=== PATIENT | male | born 1955 | race Caucasian/White ===

== ENCOUNTER 2017-07-15 08:47 | Day surgery (SDC) | payer BC ==
[~2017-07-15] VITALS: Ht 170.2 cm; Wt 103.5 kg
[~2017-07-15 08:47] MED LIST: AMLO5 PO; ASPI81EC PO; ATOR10 PO; FENO145 PO; NAPR500 PO; OLME20-12. PO
== END 2017-07-15 10:57 | disposition home or self-care (01) ==
LOC: ORSCSDS 08:47
PROVIDERS: Internal Medicine Gastroenterology
PROC: 0DBP8ZX Excision of Rectum, Via Natural or Artificial Opening Endoscopic, Diagnostic (ICD-10-PCS; principal; 2017-07-15 10:00)
PROC: 0DBK8ZX Excision of Ascending Colon, Via Natural or Artificial Opening Endoscopic, Diagnostic (ICD-10-PCS; principal; 2017-07-15 10:00)
PROC: 0DBH8ZX Excision of Cecum, Via Natural or Artificial Opening Endoscopic, Diagnostic (ICD-10-PCS; principal; 2017-07-15 10:00)
DX: Z12.11 Encounter for screening for malignant neoplasm of colon (principal); D12.0 Benign neoplasm of cecum; D12.2 Benign neoplasm of ascending colon; K62.1 Rectal polyp; Z86.010 Personal history of colon polyps; Z80.0 Family history of malignant neoplasm of digestive organs; I10 Essential (primary) hypertension; E78.5 Hyperlipidemia, unspecified; Z79.82 Long term (current) use of aspirin; Z79.899 Other long term (current) drug therapy; Z87.891 Personal history of nicotine dependence
CPT/HCPCS: 88305; J7120

== ENCOUNTER 2019-02-16 01:02 | Observation (INO) | payer BC ==
[~2019-02-16] VITALS: Ht 170.2 cm; Wt 104.3 kg
[2019-02-16 01:50] LABS: BASOPHILS ABSOLUTE AUTO 0.03 K/mm3 (0.00-0.23); BASOPHILS PERCENT AUTO 1 % (0-2); EOSINOPHILS ABSOLUTE AUTO 0.13 K/mm3 (0.00-0.68); EOSINOPHILS PERCENT AUTO 2 % (0-6); Hematocrit 40.3 % (37.0-53.0); Hemoglobin 14.1 g/dL (13.5-17.5); IMMATURE GRAN ABSOLUTE AUTO 0.04 K/mm3 (0.00-0.10); IMMATURE GRAN PERCENT AUTO 1 % (0-1); LYMPHOCYTES ABSOLUTE AUTO 1.28 K/mm3 (0.84-5.20); LYMPHOCYTES PERCENT AUTO 20 % (21-46); MONOCYTES ABSOLUTE AUTO 0.72 K/mm3 (0.16-1.47); MONOCYTES PERCENT AUTO 11 % (4-13); Mean Corpuscular HGB 33.3 pg (26.0-34.0); Mean Corpuscular Volume 95 fL (80-100); Mean Platelet Volume 9.3 fL (9.1-12.4); NEUTROPHILS ABSOLUTE AUTO 4.23 K/mm3 (1.96-9.15); NEUTROPHILS PERCENT AUTO 66 % (41-73); Platelet Count 227 K/mm3 (150-400); RDW Coefficient Variation 13.1 % (11.7-14.2); RDW Standard Deviation 45.7 fL (35.1-46.3); Red Blood Cell Count 4.23 M/mm3 (4.30-5.90); White Blood Cell Count 6.43 K/mm3 (4.00-11.30)
[2019-02-16] MEDS ORDERED: OLMESARTAN-HCT1 EACH PO (02:01)
[2019-02-16] MEDS ORDERED: Aspir 8181 MG PO (02:02)
[2019-02-16 02:04] LABS: Alanine Aminotransfer (ALT/SGP 673 U/L (12-78); Albumin, Blood 3.9 g/dL (3.4-5.0); Alk Phos 164 U/L (50-136); Anion Gap 11 mmol/L (6-16); Aspartate Aminotrans (AST/SGOT 974 U/L (12-37); Blood Urea Nitrogen 15 mg/dL (8-24); Bun/Creatinine Ratio 16.8 (12.0-20.0); CO2, Blood 23 mmol/L (21-32); Calcium, Blood 8.8 mg/dL (8.5-10.1); Chloride, Blood 102 mmol/L (98-108); Creatinine, Blood 0.89 mg/dL (0.60-1.20); Globulin, Blood 3.8 g/dL (2.2-4.0); Glomerular Filtration Rate >60 (60-); Glucose, Blood 119 mg/dL (70-99); Potassium, Blood 3.5 mmol/L (3.5-5.5); Sodium, Blood 136 mmol/L (136-145); Total Protein, Blood 7.7 g/dL (6.4-8.2); Troponin I <0.015 ng/mL (0.000-0.040)
--- NOTE | 2019-02-16 07:49 | NUR ---
SHIFT SUMMARY PT NEW ADMIT THIS AM. [id number]. NPO. DISCOMFORT AT TOLERABLE LEVEL SINCE ADMISSION. NO EMESIS/NAUSEA. INDEPENDENT IN ROOM. NEW 18g IV STARTED. SURGICAL PACKET ON FRONT OF CHART. RESTING AT THIS TIME. CALL LIGHT IN REACH. REPORT TO DAY SHIFT RN.
--- NOTE | 2019-02-16 08:15 | NUR ---
pt trying to sleep pain 5/10 upper abd mid req pain meds 50 mcg fent given no nausea at this time surg sched this afternoon add on to sched gave pt gallbladder book pt is npo pt stated he has no nausea at this time
[2019-02-16] MEDS ORDERED: ATOR20 PO (08:24)
--- NOTE | 2019-02-16 11:12 | NUR ---
pt req pain meds pain still 5/10 sched abx given
--- NOTE | 2019-02-16 13:40 | NUR ---
pt transported to day surg via [facility]
--- NOTE | 2019-02-16 16:40 | NUR ---
PT Arrived back to room 229 from pacu s/p lap annika cl given pt denies abd pain no nausea
--- NOTE | 2019-02-16 17:13 | NUR ---
pt beverly cl will adv diet to reg pt having h/a po norco given no abd pain scant amt of drainage from upper steri strip bandaid placed
--- NOTE | 2019-02-16 18:26 | NUR ---
pt beverly reg diet stated his h/a is gone
--- NOTE | 2019-02-17 00:23 | NUR ---
PT TOLERATING PO AND IS SL.PAIN MINIMAL. VOIDING WITHOUT DIFF. AMBULATING IN [place].REPORTED TO Ailyn OSEGUERA RN ASSUMING CARE.
[2019-02-17 05:08] LABS: Alanine Aminotransfer (ALT/SGP 501 U/L (12-78); Albumin, Blood 3.1 g/dL (3.4-5.0); Albumin/Globulin Ratio 0.9 (0.8-1.8); Alk Phos 143 U/L (50-136); Anion Gap 9 mmol/L (6-16); Aspartate Aminotrans (AST/SGOT 264 U/L (12-37); Bilirubin, Total 0.6 mg/dL (0.1-1.0); Blood Urea Nitrogen 17 mg/dL (8-24); Bun/Creatinine Ratio 18.6 (12.0-20.0); CO2, Blood 23 mmol/L (21-32); Calcium, Blood 8.2 mg/dL (8.5-10.1); Chloride, Blood 103 mmol/L (98-108); Creatinine, Blood 0.91 mg/dL (0.60-1.20); Globulin, Blood 3.4 g/dL (2.2-4.0); Glomerular Filtration Rate >60 (60-); Glucose, Blood 141 mg/dL (70-99); Sodium, Blood 135 mmol/L (136-145); Total Protein, Blood 6.5 g/dL (6.4-8.2)
[2019-02-17] MEDS ORDERED: HYDR1TAB94 PO (13:33)
--- NOTE | 2019-02-17 15:35 | NUR ---
DISCHARGE SUMMARY PT IS DOING WELL, VSS, AND D/C HOME AT 1420 TODAY. DENIED PAIN T/O SHIFT, TOLERATED A REGULAR DIET, AND WAS AMBULATING IND W/OUT DIFFICULTY. REPORTS PASSING GAS AND VOIDING REGULARLY. DISCHARGE INSTRUCTIONS AND SCRIPT GIVEN TO PATIENT AND HIS SON. PT VERBALIZED UNDERSTANDING OF D/C INSTRUCTIONS AND DENIED ANY CONCERNS. ENCOURAGED TO FOLLOW-UP WITH PROVIDER AND CALL WITH ANY ISSUES THAT MAY ARISE.
== END 2019-02-17 14:30 | disposition home or self-care (01) ==
LOC: ER 01:02 → SURS 01:03 → ER 05:23 → SURS 05:23
PROVIDERS: Emergency Medicine; ADMIT Surgery
PROC: 0FT44ZZ Resection of Gallbladder, Percutaneous Endoscopic Approach (ICD-10-PCS; 2019-02-16)
PROC: BF13YZZ Fluoroscopy of Gallbladder and Bile Ducts using Other Contrast (ICD-10-PCS; principal; 2019-02-16 12:30)
DX: K80.12 Calculus of gallbladder with acute and chronic cholecystitis without obstruction (principal); I10 Essential (primary) hypertension; E78.5 Hyperlipidemia, unspecified; Z79.899 Other long term (current) drug therapy; Z79.82 Long term (current) use of aspirin; Z87.891 Personal history of nicotine dependence
CPT/HCPCS: 36415; 74300; 76705; 80053; 83690; 84484; 85025; 88304; 93005; 93010; 96361; 96365; 96375; 96376; 99285-25; A9270-GY; C1729; G0378; J1100; J1885; J2250; J2405; J2543; J2704; J2710; J3010; J7030; J7120

== ENCOUNTER 2023-03-31 10:49 | Day surgery (SDC) | payer MEDICARE ==
[~2023-03-31] VITALS: Ht 167.6 cm; Wt 99.5 kg
[~2023-03-31 10:49] MED LIST changes: +ATOR20 PO; +Aspir 8181 MG PO; +HYDR1TAB94 PO; +OLMESARTAN-HCT1 EACH PO
[2023-03-31] MEDS ORDERED: ZOLP12.5 (11:16)
[2023-03-31] MEDS ORDERED: SPIR25 (11:16)
--- NOTE | 2023-03-31 11:24 | NUR ---
03/31/23 1124 Dora Scherer TETRACAINE PLACED IN RIGHT EYE AT 1111. PLEDGET PLACED IN RIGHT EYE AT 1114. PATIENT TOLERATED WELL.
[2023-03-31 12:03] VITALS: BP 108/80
--- NOTE | 2023-03-31 12:16 | NUR ---
03/31/23 1216 Tanvir Nunn iv removed intact. site wnl.
== END 2023-03-31 12:17 | disposition home or self-care (01) ==
LOC: ORSCSDS 10:49
PROVIDERS: Ophthalmology
PROC: 08RJ3JZ Replacement of Right Lens with Synthetic Substitute, Percutaneous Approach (ICD-10-PCS; principal; 2023-03-31 12:00)
DX: H25.11 Age-related nuclear cataract, right eye (principal); E66.9 Obesity, unspecified; Z68.35 Body mass index [BMI] 35.0-35.9, adult; I10 Essential (primary) hypertension; Z79.899 Other long term (current) drug therapy
CPT/HCPCS: J2250; J3010; J3301; J7040; V2632

== ENCOUNTER 2023-05-23 13:56 | Day surgery (SDC) | payer MEDICARE ==
[~2023-05-23] VITALS: Ht 170.2 cm; Wt 98.0 kg
[~2023-05-23 13:56] MED LIST changes: +SPIR25; +ZOLP12.5
[2023-05-23] MEDS ORDERED: [UNRECOGNIZED DRUG - OTHER] (14:10)
[2023-05-23] MEDS ORDERED: TAMS.4ER (14:10)
[2023-05-23 17:23] VITALS: BP 110/79
--- NOTE | 2023-05-23 17:32 | NUR ---
05/23/23 1732 Georgie Hand DURING BEHAVIOR INTERVENTIONIST ATTEMPTED TO PLACE ORAL AIRWAY, BUT WAS UNABLE D/T PATIENT JAW RESISTANCE. RN ATTEMPTED TO PLACE ORAL AIRWAY A FEW TIMES, BUT AFTER A FEW TRIES PATIENT IMPROVED AND AN ORAL AIRWAY WAS NOT NECESSARY. WHEN SUCTIONING SOME SALIVA FROM THE PATIENT'S MOUTH, THERE WAS A MININMAL AMOUNT OF BLOOD NOTED. PATIENT INFORMED OF THIS OCCURRENCE WHILE IN RECOVERY AND PATIENT REPORTED NO BLOOD OR ANYTHING AT THAT TIME. PATIENT DID REPORT THAT WHEN HE TOOK A DRINK OF SODA HE COULD TELL WHERE IT WAS IRRITATED BUT THAT "IT IS NOTHING". RN ENCOURAGED PATIENT TO MONITOR HIS MOUTH AND THROAT AND IF HE DEVELOPED A HOARSE VOICE, BLEEDING, VOMITING BLOOD, OR ANY OTHER CONCERNS TO CALL DR RYAN'S OFFICE OR SEEK MEDICAL CARE. PATIENT VERBALIZED UNDERSTANDING. BLEEDING
--- NOTE | 2023-05-23 19:15 | NUR ---
05/23/231914 Georgie Hand LATE ENTRY: METHYLENE BLUE 4 ML INJECTED
== END 2023-05-23 17:20 | disposition home or self-care (01) ==
LOC: ORSCSDS 13:56
PROVIDERS: Internal Medicine Gastroenterology
PROC: 0DBH8ZX Excision of Cecum, Via Natural or Artificial Opening Endoscopic, Diagnostic (ICD-10-PCS; principal; 2023-05-23 15:15)
PROC: 3E0H8KZ Introduction of Other Diagnostic Substance into Lower GI, Via Natural or Artificial Opening Endoscopic (ICD-10-PCS; principal; 2023-05-23 15:15)
DX: Z12.11 Encounter for screening for malignant neoplasm of colon (principal); Z86.010 Personal history of colon polyps; D12.0 Benign neoplasm of cecum; Z87.891 Personal history of nicotine dependence; Z79.899 Other long term (current) drug therapy
CPT/HCPCS: 88305; J0461; J1980; J2001; J2405; J2704; J7120; Q9968